=== PATIENT | male | born 1965 | race Caucasian/White ===

== ENCOUNTER 2016-05-07 07:09 | Day surgery (SDC) | payer BC ==
[~2016-05-07] VITALS: Ht 170.2 cm; Wt 86.2 kg
[~2016-05-07 07:09] MED LIST: LEXAPRO10 MG PO; RED YEAST RICE600 MG PO; TRICOR145 MG PO; TYLENOL EXTRA500 MG PO; XANAX1 MG PO
[2016-05-07 07:52] VITALS: BP 137/92
[2016-05-07 10:40] VITALS: BP 134/70
[2016-05-07 11:26] VITALS: BP 127/89
== END 2016-05-07 11:10 | disposition home or self-care (01) ==
LOC: SDC 07:09
DX: H33.032 Retinal detachment with giant retinal tear, left eye (principal); E78.5 Hyperlipidemia, unspecified; Z88.2 Allergy status to sulfonamides
CPT/HCPCS: 93005; J0690; J1100; J2250; J2405; J3010; J3300